=== PATIENT | female | born 1990 | race African-American/Black ===

== ENCOUNTER 2025-01-10 09:33 | Emergency (ER) | payer SELFPAY ==
[~2025-01-10] VITALS: Ht 165.1 cm; Wt 95.0 kg
[2025-01-10 09:47] VITALS: O2SAT 98
[2025-01-10 09:49] VITALS: BP 119/83; PULSE 89; RESP 18; TEMP 36.7; O2SAT 100
== END 2025-01-10 11:09 | disposition left against medical advice (07) ==
LOC: ER 09:33
DX: M54.50 Low back pain, unspecified (principal)
CPT/HCPCS: 73110; 73610; 99281; 99284